=== PATIENT | female | born 1930 | race African-American/Black ===

== ENCOUNTER 2018-03-28 14:58 | Emergency (ER) | payer MEDICARE, BC ==
[~2018-03-28] VITALS: Ht 162.6 cm; Wt 59.0 kg
[2018-03-28 15:00] VITALS: BP 132/68
--- NOTE | 2018-03-28 15:44 | Emergency Room Report ---
History of Present Illness General Chief Complaint: Chest Pain Source: Patient, EMS, Caregiver Present Illness HPI Patient is a 88-year-old female brought in by EMS after increased lower abdominal pain. Patient reports having recent syncopal episode.Patient reportedly had a syncopal episode. Patient is noted to have prior history of end-stage renal disease and is on dialysis. Patient had dialysis Thursday and Thursday. The patient denies any current chest pain. The patient had previous been making urine. Patient not been vomiting or having any diarrhea. She reports having some lower abdominal pain. Patient stays at nursing facility.History is markedly limited by patient poor cooperation. Allergies: Coded Allergies: No Known Allergies (Unverified , 03/28/18) Patient History Past Medical History: see triage record Past Surgical History: unable to obtain Reviewed Nursing Documentation: PMH: Agreed; PSxH: Agreed Review of Systems All Other Systems: negative except mentioned in HPI Physical Exam Vital Signs Date Time Temp Pulse Resp B/P (MAP) Pulse Ox O2 Delivery O2 Flow Rate FiO2 03/28/18 14:51 98.5 114 20 132/68 98 Room Air 98.4 Sp02 EP Interpretation: reviewed, normal General Appearance: normal inspection, well appearing, no apparent distress, alert, GCS 15 Head: atraumatic ENT: normal ENT inspection, hearing grossly normal, normal voice Neck: normal inspection, full range of motion, supple, no bony tend Respiratory: normal inspection, lungs clear, normal breath sounds, no respiratory distress, no retraction, no wheezing Cardiovascular #1: regular rate, rhythm, no edema Gastrointestinal: normal inspection, normal bowel sounds, non tender, soft, no guarding, no hernia Genitourinary: no CVA tenderness Musculoskeletal: normal inspection, back normal, normal range of motion Neurologic: normal inspection, alert, oriented x3, responsive, 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 Differential diagnoses included ischemic bowel, appendicitis, perforated viscus, abdominal aortic aneurysm, inferior myocardial infarction, viral gastroenteritis. Because of complexity of patient' s case laboratory testing and imaging studies were ordered. A CT of abdomen and pelvis read by radiology showed moderate right-sided pleural effusion. Degenerative changes of the spine were noted. The patient is advised of urine infection as well as pleural effusion. The patient was advised that she should be hospitalized however she refuses. The patient appears to be capable of refusal. Patient was noted to be self responsible by correction. The patient states she wants to go home and have dialysis in the morning. The patient was advised risk benefits alternatives of leaving AGAINST MEDICAL ADVICE and indicated understanding and all questions are answered patient still continued want to leave and signed AGAINST MEDICAL ADVICE. Despite risks including but not limited to disability and worsening of current lifestyle. Labs Test 03/28/18 15:53 03/28/18 16:15 Urine Color Brown Urine Appearance Turbid Urine pH 5 (4.5-8.0) Urine Specific [place] 1.015 (1.005-1.035) Urine Protein 3+ (NEGATIVE) Urine Glucose (UA) Negative (NEGATIVE) Urine Ketones 1+ (NEGATIVE) Urine Occult Blood 4+ (NEGATIVE) Urine Nitrite Positive (NEGATIVE) Urine Bilirubin 2+ (NEGATIVE) Urine Ictotest Positive Urine Urobilinogen 4 MG/DL (0.0-1.0) Urine Leukocyte Esterase 3+ (NEGATIVE) Urine RBC 5-10 /HPF (0 - 2) Urine WBC Tntc /HPF (0 - 2) Urine Squamous Epithelial Cells Many /LPF (NONE/OCC) Urine Bacteria Many /HPF (NONE) White Blood Count 6.6 K/UL (4.8-10.8) Red Blood Count 3.82 M/UL (4.20-5.40) Hemoglobin 11.9 G/DL (12.0-16.0) Hematocrit 37.9 % (37.0-47.0) Mean Corpuscular Volume 99 FL (80-99) Mean Corpuscular Hemoglobin 31.1 PG (27.0-31.0) Mean Corpuscular Hemoglobin Concent 31.3 G/DL (32.0-36.0) Red Cell Distribution Width 23.4 % (11.6-14.8) Platelet Count 301 K/UL (150-450) Mean Platelet Volume 6.7 FL (6.5-10.1) Neutrophils (%) (Auto) 75.7 % (45.0-75.0) Lymphocytes (%) (Auto) 14.2 % (20.0-45.0) Monocytes (%) (Auto) 9.2 % (1.0-10.0) Eosinophils (%) (Auto) 0.1 % (0.0-3.0) Basophils (%) (Auto) 0.9 % (0.0-2.0) Sodium Level 136 MMOL/L (136-145) Potassium Level 4.2 MMOL/L (3.5-5.1) Chloride Level 98 MMOL/L (98-107) Carbon Dioxide Level 22 MMOL/L (21-32) Anion Gap 17 mmol/L (5-15) Blood Urea Nitrogen 33 mg/dL (7-18) Creatinine 3.1 MG/DL (0.55-1.30) Estimat Glomerular Filtration Rate mL/min (>60) Glucose Level 171 MG/DL (74-106) Calcium Level 11.4 MG/DL (8.5-10.1) Total Bilirubin 1.2 MG/DL (0.2-1.0) Direct Bilirubin 0.4 MG/DL (0.0-0.3) Aspartate Amino Transf (AST/SGOT) 50 U/L (15-37) Alanine Aminotransferase (ALT/SGPT) 51 U/L (12-78) Alkaline Phosphatase 90 U/L (46-116) Troponin I 0.061 ng/mL (0.000-0.056) Pro-B-Type Natriuretic Peptide > 87979 pg/mL (0-125) Total Protein 7.4 G/DL (6.4-8.2) Albumin 3.6 G/DL (3.4-5.0) Globulin 3.8 g/dL Albumin/Globulin Ratio 0.9 (1.0-2.7) Lipase 113 U/L (73-393) Thyroid Stimulating Hormone (TSH) < 0.007 uiU/mL (0.358-3.740) EKG Diagnostic Results Rate: tachycardiac Rhythm: NSR ST Segments: no acute changes Rhythm Strip Diag. Results EP Interpretation: yes Rhythm: NSR, no PVC's, no ectopy Last Vital Signs Date Time Temp Pulse Resp B/P (MAP) Pulse Ox O2 Delivery O2 Flow Rate FiO2 03/28/18 15:00 114 20 Room Air 03/28/18 14:51 98.5 132/68 98 98.4 Status: improved Disposition: AGAINST MEDICAL ADVICE Condition: Serious Referrals: OSITO NOLAN M.D. (PCP) Claudio Caraballo MD March 28, 2018 15:44
[2018-03-28 16:05] LABS: APPEARANCE,URINE TURBID; BILIRUBIN, URINE 2+ (NEGATIVE); COLOR,URINE BROWN; GLUCOSE, URINE (UA) NEGATIVE (NEGATIVE); KETONES,URINE 1+ (NEGATIVE); LEUKOCYTE ESTERASE ,URINE 3+ (NEGATIVE); NITRITE,URINE POSITIVE (NEGATIVE); PH,URINE 5 (4.5-8.0); PROTEIN,URINE 3+ (NEGATIVE); UROBILINOGEN,URINE 4 MG/DL (0.0-1.0)
[2018-03-28] MEDS ORDERED: cefTRIAXone 2 GM in NS 55 ML IVPB ONE (16:30)
[2018-03-28] MEDS ORDERED: DOCUSATE SODIU100 MG ORAL (16:31)
[2018-03-28] MEDS ORDERED: PLAVIX75 MG ORAL (16:31)
[2018-03-28] MEDS ORDERED: TYLENOL EXTRA500 MG ORAL (16:31)
[2018-03-28] MEDS ORDERED: HYDREA500 MG PO (16:31)
[2018-03-28] MEDS ORDERED: MIDODRINE HCL10 MG ORAL (16:31)
[2018-03-28] MEDS ORDERED: AMIODARONE HCL400 M1 ORAL (16:31)
[2018-03-28] MEDS ORDERED: NEPHROVITE1 TAB ORAL (16:31)
[2018-03-28] MEDS ORDERED: MIRALAX17 G2 ORAL (16:31)
[2018-03-28] MEDS ORDERED: LANTUS SOL100 UNIT/1 SUBQ (16:31)
[2018-03-28] MEDS ORDERED: FISH OIL CAP1000 MG ORAL (16:31)
[2018-03-28] MEDS ORDERED: CRESTOR10 M2 ORAL (16:31)
[2018-03-28] MEDS ORDERED: ASPIR 8181 MG ORAL (16:31)
[2018-03-28] MEDS ORDERED: SENNA8.6 M2 PO (16:31)
[2018-03-28] MEDS ORDERED: FAMOTIDINE20 MG ORAL (16:31)
[2018-03-28] MEDS ORDERED: NITROSTAT0.4 M1 SL (16:31)
[2018-03-28] MEDS ORDERED: VITAMIN D400 INTLU ORAL (16:31)
[2018-03-28] MEDS ORDERED: GUAIFENESI100 MG/5 M ORAL (16:31)
[2018-03-28] MEDS ORDERED: METOPROLOL TART25 MG ORAL ×2 (16:31→18:03)
[2018-03-28] MEDS ORDERED: ASCORBIC ACID500 MG ORAL (16:31)
[2018-03-28] MEDS ORDERED: BISACODYL5 MG ORAL (16:31)
[2018-03-28 16:46] LABS: ANION GAP 17 mmol/L (5-15); BLOOD UREA NITROGEN 33 mg/dL (7-18); CALCIUM 11.4 MG/DL (8.5-10.1); CARBON DIOXIDE 22 MMOL/L (21-32); CHLORIDE 98 MMOL/L (98-107); CREATININE 3.1 MG/DL (0.55-1.30); POTASSIUM 4.2 MMOL/L (3.5-5.1); SODIUM 136 MMOL/L (136-145)
[2018-03-28 16:59] LABS: ALANINE AMINOTRANSFERASE 51 U/L (12-78); ALBUMIN 3.6 G/DL (3.4-5.0); ALBUMIN/GLOBULIN RATIO 0.9 (1.0-2.7); ALKALINE PHOSPHATASE 90 U/L (46-116); ASPARTATE AMINO TRANSFERASE 50 U/L (15-37); BILIRUBIN,TOTAL 1.2 MG/DL (0.2-1.0)
[2018-03-28 17:02] LABS: BASOPHILS % (AUTO) 0.9 % (0.0-2.0); EOSINOPHILS % (AUTO) 0.1 % (0.0-3.0); HEMATOCRIT 37.9 % (37.0-47.0); HEMOGLOBIN 11.9 G/DL (12.0-16.0); LYMPHOCYTES % (AUTO) 14.2 % (20.0-45.0); MEAN CORPUSCULAR VOLUME 99 FL (80-99); MONOCYTES % (AUTO) 9.2 % (1.0-10.0); NEUTROPHILS % (AUTO) 75.7 % (45.0-75.0); PLATELET COUNT 301 K/UL (150-450); RED BLOOD COUNT 3.82 M/UL (4.20-5.40); RED CELL DISTRIBUTION WIDTH 23.4 % (11.6-14.8); WHITE BLOOD COUNT 6.6 K/UL (4.8-10.8)
[2018-03-28 17:09] LABS: BILIRUBIN,DIRECT 0.4 MG/DL (0.0-0.3)
[2018-03-28] MEDS ORDERED: BISACODYL10 M1 RC (17:49)
[2018-03-28] MEDS ORDERED: VITAMIN D1000 UNI1 ORAL ×2 (18:10→18:11)
[2018-03-28] MEDS ORDERED: HUMALOG100 UNIT/1 SUBQ (18:23)
[2018-03-28] MEDS ORDERED: METFORMIN HCL500 M1 ORAL (18:23)
[2018-03-28] MEDS ORDERED: FUROSEMIDE40 MG ORAL (18:29)
[2018-03-28] MEDS ORDERED: ZOCOR20 M1 ORAL (18:29)
[2018-03-28 18:32] VITALS: BP 126/72
[2018-03-28 19:50] VITALS: BP 107/58
[2018-03-28 20:16] VITALS: BP 107/58
--- NOTE | 2018-03-29 09:36 | Diagnostic Imaging Report ---
Indication: Abdominal pain Technique: Continuous helical transaxial imaging of the abdomen and pelvis was obtained from the lung bases to the pubic symphysis. No intravenous contrast was administered. Coronal 2-D reformats were also obtained. Automatic Exposure Control was utilized. Total Dose length Product (DLP): 701.[address] Dose Index Volume (CTDIvol): 15.23 mGy Comparison: none Findings: There is a moderate right pleural effusion and a small left pleural effusion. Arterial calcifications are present in the aorta and coronary arteries. There is posterior basal atelectasis on the right side. Calcifications are present within the liver and spleen may be due to old granulomatous disease. The gallbladder is uniformly hyperdense which may be due to underlying stones or sludge. Gallbladder is also distended. There are renal cysts present bilaterally. There is a small amount of free fluid. There is no evidence of bowel obstruction. In the left adnexa there is suggestion of ovarian cysts measuring in the upwards of 3.5 cm. Correlate clinically. Ultrasound may be of benefit nonemergent basis. Uterus is absent. The appendix is not visualized. IMPRESSION: Moderate right pleural effusion. Trace left pleural effusion. Associated atelectasis. Atherosclerotic disease Old granulomatous disease Distended gallbladder with sludge versus stones. Renal cysts Suggestion of ovarian cysts within the left adnexa. Follow-up [employer] suggested. Status post hysterectomy. [facility] has communicated the preliminary results to the Emergency Department. Their findings are largely concordant with this report. The CT scanner at [facility] is accredited by the [employer] and the scans are performed using dose optimization techniques as appropriate to a performed exam including Automatic Exposure control.
--- NOTE | 2018-03-29 13:50 | Cardiology Report ---
APPROVED REPORT EKG Measurement Heart [id number] MD [id number] Normal sinus rhythm Abnormal QRS-T angle, consider primary T wave abnormality Abnormal ECG
== END 2018-03-28 20:17 | disposition left against medical advice (07) ==
LOC: EDBD 14:58 → EMR 15:27 → CANBEDREQ 18:08 → EMR 20:17
DX: N39.0 Urinary tract infection, site not specified (principal); J90 Pleural effusion, not elsewhere classified; I12.0 Hypertensive chronic kidney disease with stage 5 chronic kidney disease or end stage renal disease; N18.6 End stage renal disease; Z99.2 Dependence on renal dialysis
CPT/HCPCS: 36415; 74176; 80053; 81001; 82248; 83690; 83880; 84443; 84484; 85025; 87086; 87181; 93005; 96374; 99284; J0696